=== PATIENT | female | born 1930 | race Caucasian/White ===

== ENCOUNTER 2017-01-03 03:16 | Observation (INO) | payer MEDICARE, OTHER ==
[~2017-01-03] VITALS: Ht 157.5 cm; Wt 99.5 kg
[2017-01-03] VITALS (11 sets, daily range): BP systolic 155–198; BP diastolic 74–90; PULSE 50–67; RESP 18–20; TEMP 98; Ht 157.5 cm; Wt 99.5 kg
[~2017-01-03 03:16] MED LIST: ASPI-664 PO; BENA40TA41 PO; CARV6.2579 PO; CLON0.2T5 PO; CYAN100080 PO; FURO40TA4 PO; GABA-526 PO; HUM100VI14 SC; HYDR12.58 PO; METF500T4 PO; NIT4 SL; POTA8TAB2 PO; SIMV40TA2 PO; TRAM-40 PO
[2017-01-03] MEDS ORDERED: ACETAMINOPHEN 500 MG TAB PO STA (03:37)
[2017-01-03] MEDS ORDERED: METOCLOPRAMIDE 10 MG INJ IV STA (03:37)
[2017-01-03] MEDS ORDERED: SOD CHLORIDE 0.9% 500 ML IV STA (03:37)
--- NOTE | 2017-01-03 03:54 | ERD ---
ER Documentation Chief Complaint Date/Time DATE: 01/03/17 TIME: 03:54 Chief Complaint pt states home BP machine states 300 at home and 239 HPI 86-year-old female with a history of hypertension, diabetes, and CHF presenting to the ER with complaints of hypertension, headache, chest pressure. She took multiple clonidine at home prior to arrival. She feels slightly better. She denies any vision disturbance, focal weakness or numbness. She states that she has had on and off chest pressure since yesterday with associated shortness of breath. Her symptoms are worse when she lays down, better with sitting up. No associated abdominal pain, nausea, vomiting, dizziness, diaphoresis. ROS All systems reviewed and are negative except as per history of present illness. Medications Home Meds Reported Medications Imipramine Hcl* (Imipramine Hcl*) 25 Mg Tablet, 25 MG PO HS, TAB 01/03/17 Mirtazapine* (Mirtazapine*) 15 Mg Tablet, 15 MG PO HS, TAB 01/03/17 Atorvastatin Calcium* (Atorvastatin Calcium*) 20 Mg Tablet, 20 MG PO DAILY, #30 TAB 01/03/17 Metformin* (Glucophage*) 850 Mg Tablet, 850 MG PO WITH BREAKFAST DINNE, #60 TAB 01/03/17 Carvedilol* (Carvedilol*) 12.5 Mg Tablet, 12.5 MG PO BID, #60 TAB 01/03/17 Hydrochlorothiazide* (Hydrochlorothiazide*) 12.5 Mg Tablet, 12.5 MG PO DAILY, TAB 07/06/15 Simvastatin* (Zocor*) 40 Mg Tablet, 40 MG PO DAILY, TAB 07/06/15 Gabapentin* (Gabapentin*) 600 Mg Tablet, 600 MG PO BID, TAB 07/06/15 Nitroglycerin* (Nitrostat*) 0.4 Mg Tab.subl, 0.4 MG SL Q5MIN Y for CHEST PAIN, BOTTLE 05/09/14 Aspirin* (Aspirin* EC) 81 Mg Tablet.dr, 81 MG PO DAILY, TAB 05/09/14 Discontinued Reported Medications Cyanocobalamin* (Vitamin B-12*) 1,000 Mcg Tablet.sa, 1000 MCG PO DAILY, TAB 07/06/15 Metformin* (Glucophage*) 500 Mg Tab, 500 MG PO BID, TAB 07/06/15 Carvedilol* (Carvedilol*) 6.25 Mg Tablet, 6.25 MG PO BID, TAB 07/06/15 Tramadol Hcl* (Ultram*) 50 Mg Tablet, 50 MG PO BID, TAB 07/06/15 Potassium Chloride* (Klor-Con*) 8 Meq Tablet.sa, 8 MEQ PO DAILY, TAB 07/06/15 Insulin Human Isophan/Regular (Novolin 70/30) 100 Units/Ml Susp, 30 UNIT SC PM, EA 05/27/14 Insulin Human Isophan/Regular (Novolin 70/30) 100 Units/Ml Susp, 35 UNIT SC AM, EA 05/27/14 Furosemide* (Furosemide*) 40 Mg Tablet, 40 MG PO DAILY, TAB 05/09/14 Benazepril Hcl* (Benazepril Hcl*) 40 Mg Tablet, 40 MG PO DAILY, TAB 05/09/14 Discontinued Scripts Clonidine Hcl* (Clonidine Hcl*) 0.2 Mg Tablet, 0.3 MG PO TID for 30 Days, TAB 3 Refills Prov:ALYSSA YADAV F 07/07/15 Allergies Allergies: Coded Allergies: NSAIDS (Non-Steroidal Anti-Inflamma (Unverified Allergy, Severe, 01/03/17) indomethacin (Unverified Allergy, Severe, 01/03/17) ANGIOEDEMA cortisone (Unverified Allergy, Unknown, 01/03/17) PMhx/Soc History of Surgery: Yes (CATARACT EYE SX; KNEE SX) Anesthesia Reaction: No Hx Neurological Disorder: No Hx Respiratory Disorders: No Hx Cardiac Disorders: Yes (HTN; HYPERLIPIDEMIA) Hx Psychiatric Problems: No Hx Miscellaneous Medical Probl: No Hx Alcohol Use: No Hx Substance Use: No Hx Tobacco Use: No FmHx Family History: No diabetes Physical Exam Vitals Vital Signs Date Time Temp Pulse Resp B/P Pulse Ox O2 Delivery O2 Flow Rate FiO2 01/03/17 06:42 97.5 55 18 150/70 91 Room Air 01/03/17 03:33 98.3 61 18 244/81 94 Room Air 01/03/17 03:24 98.3 60 18 190/75 100 Physical Exam Const: No significant distress, nontoxic Head: Atraumatic Eyes: Normal Conjunctiva, PERRLA, EOMI ENT: Normal External Ears, Nose and Mouth. Neck: Full range of motion. No JVD no meningismus. Resp: Clear to auscultation bilaterally Cardio: Regular rate and rhythm, no murmurs Abd: Soft, non tender, protuberant. Normal bowel sounds Skin: No petechiae or rashes Back: No midline or flank tenderness Ext: No cyanosis, nonpitting bilateral lower extremity edema. No calf tenderness bilateral Neur: Awake and alert and oriented 3, cranial nerves intact, strength and sensations intact in all 4 extremity Psych: Normal Mood and Affect Result Diagram: 01/03/17 0355 01/03/17 0355 Results 24 hrs Laboratory Tests Test 01/03/17 03:55 White Blood Count 4.910^3/ul Red Blood Count 4.8110^6/ul Hemoglobin 14.1g/dl Hematocrit 42.5% Mean Corpuscular Volume 88.4fl Mean Corpuscular Hemoglobin 29.3pg Mean Corpuscular Hemoglobin Concent 33.2g/dl Red Cell Distribution Width 12.8% Platelet Count 47605^3/UL Mean Platelet Volume 11.8fl Neutrophils % 55.3% Lymphocytes % 26.2% Monocytes % 14.2% Eosinophils % 3.7% Basophils % 0.4% Nucleated Red Blood Cells % 0.0/100WBC Neutrophils # 2.710^3/ul Lymphocytes # 1.310^3/ul Monocytes # 0.710^3/ul Eosinophils # 0.210^3/ul Basophils # 0.010^3/ul Nucleated Red Blood Cells # 0.010^3/ul Prothrombin Time 13.0Sec Prothrombin Time Ratio 1.0 INR International Normalized Ratio 0.98 Activated Partial Thromboplast Time 30.3Sec Sodium Level 141mmol/L Potassium Level 4.1mmol/L Chloride Level 102mmol/L Carbon Dioxide Level 29mmol/L Anion Gap 14 Blood Urea Nitrogen 24mg/dl Creatinine 1.02mg/dl Glucose Level 181mg/dl Calcium Level 9.0mg/dl Troponin I < 0.012ng/ml Current Medications Medications (Trade) Dose Ordered Sig/Jayson Route PRN Reason Start Time Stop Time Status Last Admin Dose Admin Sodium Chloride (NS) 500 ml @ 500 mls/hr Q1H STAT IV 01/03/17 03:37 01/03/17 04:36 DC 01/03/17 04:02 Metoclopramide HCl (Reglan) 10 mg ONCE STAT IV 01/03/17 03:37 01/03/17 03:38 DC 01/03/17 04:02 Acetaminophen (Tylenol Tab) 1,000 mg ONCE STAT PO 01/03/17 03:37 01/03/17 03:39 DC 01/03/17 04:02 Nitroglycerin (Nitroglycerin (Sl Tab) 0.4 Mg) 1 tab ONCE ONCE SL 01/03/17 05:30 01/03/17 05:31 DC 01/03/17 05:41 Nitroglycerin (Nitroglycerin (Sl Tab) 0.4 Mg) 1 tab ONCE ONCE SL 01/03/17 06:30 01/03/17 06:31 DC 01/03/17 06:20 Enalaprilat (Vasotec Iv) 0.625 mg ONCE ONCE IV 01/03/17 06:30 01/03/17 06:31 DC Procedures/MDM Labs: CBC and BMP without any significant abnormalities. Initial troponin negative. EKG: Rate/Rhythm: Sinus bradycardia at 59 with first-degree AV block QRS, ST, T-waves: Nonspecific T-wave abnormality, no changes consistent w/ acute ischemia Impression: No evidence of ischemia or arrhythmia Repeat EKG: Rate/Rhythm: Sinus bradycardia at 57 QRS, ST, T-waves: Nonspecific T-wave abnormality, no changes consistent w/ acute ischemia Impression: No evidence of ischemia or arrhythmia Chest x-ray IMPRESSION: Cardiomegaly and pulmonary vascular congestion. Aortic atherosclerosis. RPTAT: [facility] Physician Britt Date Time Electronically viewed and signed by Babita Camarillo Physician on 01/03/2017 06 :23 CT head does not show any acute abnormalities, chronic changes noted MDM: Patient is presenting with significant hypertension with headache and chest pressure. Reglan IV was given for headache with resolution of the headache. CT did not show any acute hemorrhage. Exam is not consistent with acute stroke. Nitroglycerin sublingual 0.4 mg 2 was given with improvement of her chest pain and her blood pressure. I have a low suspicion for hypertensive emergency at this time, however her chest pain is concerning. She does have evidence of some CHF on her chest x-ray but her respiratory status is stable. Patient's symptoms are concerning for cardiac cause will require inpatient workup and continuous monitoring. Aspirin was not given as the patient has an allergy to NSAIDs. Further w/u for ischemia, arrhythmia, PE or dissection will be deferred to the inpatient team. Accepting Care Team: Current data and ongoing care discussed. Time: Time of admission Primary Provider: Darin Consulting: None Outstanding Data: none Departure Diagnosis: Primary Impression: Chest pain Chest pain type: other chest pain Qualified Code: R07.89 - Other chest pain Additional Impressions: Hypertensive emergency CHF (congestive heart failure) Congestive heart failure type: unspecified congestive heart failure type Congestive heart failure chronicity: acute on chronic Qualified Code: I50.9 - Acute on chronic congestive heart failure, unspecified congestive heart failure type Headache Headache type: other headache syndrome Qualified Code: G44.89 - Other headache syndrome Condition: Serious MATIAS SELLERS MD Jan 03, 2017 03:54
[2017-01-03 04:18] LABS: ADD SCAN DIFF NO
[2017-01-03 04:23] LABS: BASOPHILS % 0.4 % (0.0-2.0); EOSINOPHILS # 0.2 10^3/ul (0.0-0.5); EOSINOPHILS % 3.7 % (0.0-7.0); HEMATOCRIT 42.5 % (37.0-47.0); HEMOGLOBIN 14.1 g/dl (12.0-16.0); LYMPHOCYTES # 1.3 10^3/ul (0.8-2.9); LYMPHOCYTES % 26.2 % (15.0-51.0); MEAN CORPUSCULAR HEMOGLOBIN 29.3 pg (29.0-33.0); MEAN CORPUSCULAR HGB CONC 33.2 g/dl (32.0-37.0); MEAN CORPUSCULAR VOLUME 88.4 fl (82.0-101.0); MEAN PLATELET VOLUME 11.8 fl (7.4-10.4); MONOCYTE # 0.7 10^3/ul (0.3-0.9); MONOCYTES % 14.2 % (0.0-11.0); NEUTROPHIL # 2.7 10^3/ul (1.6-7.5); NEUTROPHILS % 55.3 % (39.0-77.0); PLATELET COUNT 142 10^3/UL (140-415); RED BLOOD COUNT 4.81 10^6/ul (4.20-5.40); RED CELL DISTRIBUTION WIDTH 12.8 % (11.5-14.5); WHITE BLOOD COUNT 4.9 10^3/ul (4.8-10.8)
[2017-01-03 04:35] LABS: INR 0.98; PARTIAL THROMBOPLASTIN TIME 30.3 Sec (25.0-35.0)
[2017-01-03 04:43] LABS: CREATININE 1.02 mg/dl (0.44-1.00); POTASSIUM 4.1 mmol/L (3.5-5.1)
--- NOTE | 2017-01-03 04:58 | RADRPT ---
PROCEDURE: CT BRAIN WITHOUT CONTRAST CLINICAL INDICATION: 86-year-old female with headaches. TECHNIQUE: The study was performed utilizing [employer] VCT 64-slice CT scanner. Direct axial sections were obtained from the foramen magnum to the vertex without the use of intravenous contrast material. Sagittal and coronal reformations were obtained. Sagittal and coronal reformations were obtained. One or more the following dose reduction techniques were utilized: automated exposure cont rol, adjustment of the mA and/or kV according to patient's size or use of iterative reconstruction t echnique. The images were viewed on a PACS workstation. CTD/vol = 44.0 mGy; Total Exam DLP = 720.2 mGy-cm. COMPARISON: CT brain May 13, 2014. FINDINGS: There is [id number] degree of diffuse cortical and central atrophy with compensatory ventricul ar enlargement. There is no evidence for mass effect or midline shift. There are periventricular a reas of decreased density consistent with microangiopathic ischemic changes. There is no evidence f or acute intra or extra-axial blood. Calcifications are seen within the intracranial carotid arterie s bilaterally. The bony calvarium is intact. Small calcific bony excrescences are seen projecting fr om the right frontal and left temporal region without significant change. There is mild mucosal thi ckening within the ethmoid air cells and inferior maxillary sinuses. No air-fluid levels are noted. The mastoid air cells without significant soft tissue. IMPRESSION: 1. The intracranial contents are without significant interval change compared to the patient's prio r CT scan from May 13, 2014. 2. Tfas-hv-cmtowxct diffuse atrophy. 3. Microangiopathic ischemic changes. 4. Vascular calcifications. 5. Mild mucosal thickening ethmoid air cells and maxillary sinuses. .Charlie Smith MD, Date Time Electronically viewed and signed by .Charlie Smith MD, on 01/03/2017 04:58 .M/
[2017-01-03] MEDS ORDERED: NITROGLYCERIN (SL) 0.4 MG TAB SL ONE ×2 (05:30→06:30)
[2017-01-03] MEDS ORDERED: CARV12.579 PO (05:48)
[2017-01-03] MEDS ORDERED: METF-480 PO (05:48)
[2017-01-03] MEDS ORDERED: MIRT15TA5 PO (05:51)
[2017-01-03] MEDS ORDERED: IMIP25TA3 PO (05:51)
[2017-01-03] MEDS ORDERED: ATOR20TA38 PO (05:51)
--- NOTE | 2017-01-03 06:23 | RADRPT ---
PROCEDURE: XR Chest. CLINICAL INDICATION: Chest pain. Upper GI bleed. TECHNIQUE: Portable single view of the chest COMPARISON: 07/06/2015 FINDINGS: Again seen is cardiomegaly and ectatic and calcified aorta. Pulmonary vascular congestion is seen. No definite focal infiltrate or pleural effusion. No overt congestive heart failure. Mild degener ative change of the spine. IMPRESSION: Cardiomegaly and pulmonary vascular congestion. Aortic atherosclerosis. RPTAT: [facility] Physician Britt Date Time Electronically viewed and signed by Babita Camarillo Physician on 01/03/2017 06:23 LE/
[2017-01-03] MEDS: ENALAPRILAT 1.25 MG INJ IV ONE ×2 (06:40→06:46)
[2017-01-03] MEDS ORDERED: ONDANSETRON 4 MG INJ IV PRN (07:00)
[2017-01-03] MEDS ORDERED: ACETAMINOPHEN 325 MG TAB PO PRN ×2 (07:00→09:30)
[2017-01-03] MEDS ORDERED: morphine 2 MG INJ IV PRN (09:30)
[2017-01-03] MEDS ORDERED: HYDROCODONE/APAP (5/325) TAB PO PRN (09:30)
[2017-01-03] MEDS ORDERED: NACL 0.9% 3 ML SYG IV SCH (09:30)
[2017-01-03] MEDS ORDERED: GLUCOSE GEL 15 GRAM TUBE PO PRN ×2 (10:00)
[2017-01-03] MEDS ORDERED: GLUCOSE GEL 15 GRAM TUBE BUCCAL PRN (10:00)
[2017-01-03] MEDS ORDERED: BENAZEPRIL 5 MG TAB PO SCH (10:00)
[2017-01-03] MEDS ORDERED: DEXTROSE 50% 50 ML SYRINGE IV PRN ×2 (10:00)
[2017-01-03] MEDS ORDERED: GLUCAGON 1 MG INJ IM PRN (10:00)
[2017-01-03] MEDS ORDERED: FUROSEMIDE 20 MG INJ IV ONE (11:30)
--- NOTE | 2017-01-03 11:47 | HP ---
DATE OF ADMISSION: 01/03/2017 TIME OF EVALUATION: 9:00 a.m. REASON FOR ADMISSION: Chest pain. CONSULTATIONS: Dr. Lokesh [place], Cardiology. HOSPITAL COURSE: This is an 86-year-old [place] female with a past medical history of essential hypertension, type 2 diabetes mellitus, dyslipidemia, and morbid obesity, who came to the emergency room with a chief complaint of chest pain, as well as elevated blood pressure readings at home. The patient verbalized that for the past 2 days that she was having chest pain with lying down. The patient verbalized the pain as a squeezing pain and that it was intense with lying down, but better with sitting up. The patient also verbalized associated diaphoresis. The patient verbalized that her blood pressure has been running high for the past 2 days. The patient denied any nausea, vomiting, abdominal pain, diarrhea, hematochezia or dysuria. The patient also verbalized dyspnea associated with her chest pain symptoms. The patient does not follow up with outpatient cardiology. The patient had a stress test done in July of 2015 that was negative. At that time the patient was advised to follow up with outpatient cardiology; however, the patient never followed up with outpatient cardiology. In the emergency room, the patient had a blood pressure of 190/75, with a repeat reading of 244/81. The patient's troponins were negative. The patient' s 12-lead EKG showed a first-degree AV block. The patient was treated with IV enalapril and sublingual nitroglycerin in the emergency room. The patient's chest x-ray that was done in the emergency room showed cardiomegaly and pulmonary vascular congestion. PAST MEDICAL HISTORY: 1. Essential hypertension. 2. Type 2 diabetes mellitus. 3. Dyslipidemia. 4. Obesity. PAST SURGICAL HISTORY: Right knee replacement. HOME MEDICATIONS: 1. Imipramine 25 mg p.o. at bedtime. 2. Mirtazapine 50 mg p.o. at bedtime. 3. Atorvastatin 20 mg p.o. daily. 4. Metformin 850 mg p.o. with breakfast and dinner. 5. Coreg 12.5 mg p.o. b.i.d. 6. Hydrochlorothiazide 12.5 mg p.o. daily. 7. Gabapentin 600 mg p.o. b.i.d. 8. Aspirin 81 mg p.o. daily. ALLERGIES: NSAIDs. REVIEW OF SYSTEMS: A 12-point review of systems were made and review of systems are negative other than what is mentioned in the history of present illness. PHYSICAL EXAMINATION: VITAL SIGNS: Temperature 98.0, pulse rate 50, respiratory rate 17, blood pressure 151/78, oxygen saturation 98% on room air. GENERAL: This is an obese female patient, sitting in a chair, in no apparent distress. HEENT: Head normocephalic and atraumatic. Eyes, anicteric sclerae. Conjunctivae clear. ENT: Nasal septum is midline. Oral mucosa is moist. NECK: Supple. No JVD noticed. RESPIRATORY: Bilaterally diminished breath sounds. Bilateral fine rales heard. No use of accessory muscles of respiration. CARDIAC: S1, S2 heard. Sinus bradycardia. Regular rate and rhythm. ABDOMEN: Soft, nontender, nondistended. Bowel sounds positive in all 4 quadrants. GENITOURINARY: Deferred. EXTREMITIES: No cyanosis, no clubbing, no edema. Peripheral pulses palpable. A right knee surgical scar. NEUROLOGIC: The patient is awake, alert and oriented. Cranial nerves are grossly intact. LABORATORY AND DIAGNOSTIC DATA: WBC 4.9, hemoglobin 14.1, hematocrit 42.5, platelet count 142. Sodium 141, potassium 4.1, chloride 102, carbon dioxide 20 , anion gap 14, BUN 24, creatinine 1.02, glucose 181, calcium 9.0. Troponin I less than 0.01. ProBNP 292. PT 13.0, INR 0.988, PTT 30.3. Chest x-ray: Cardiomegaly and pulmonary vascular congestion. Aortic atherosclerosis. Brain CT scan: Mild to moderate diffuse atrophy. Microangiopathic ischemic changes. Vascular calcifications. Mild mucosal thickening of ethmoid air cells and maxillary sinuses. 12-lead EKG: Positive AV block. IMPRESSION: This is an 86-year-old female with multiple comorbidities who came into the emergency room with a chief complaint of chest pain, as well as elevated blood pressure, who will be admitted here for further treatment and evaluation. ASSESSMENT AND PLAN: 1. Chest pain. To rule out acute coronary syndrome. The patient will be continued on aspirin. Serial troponins will be obtained. A 2D echocardiogram will be obtained. A cardiology consult will be obtained. 2. First-degree AV block. The patient will be monitored on telemetry floor. AV louise blocking agents will be avoided. Cardiology consult will be obtained. 3. Possible underlying congestive heart failure exacerbation. Systolic versus diastolic dysfunction. A 2D echocardiogram will be obtained. The patient's BNP is not elevated. However, the patient's chest x-ray is showing pulmonary vascular congestion. The patient will be started on low-dose Lasix. A cardiology consult will be obtained. 4. Hypertensive urgency. The patient will be started on appropriate antihypertensives. The patient's blood pressure will be lowered gradually. 5. Type 2 diabetes mellitus. The patient will be started on sliding scale insulin, along with Lantus insulin and premeal insulin. Hemoglobin A1c will be obtained to evaluate the blood glucose control over the past few weeks. 6. Dyslipidemia. The patient will be resumed on statins. A fasting lipid panel will be obtained. The patient will be started on a low cholesterol diet. Plan. The patient will be admitted to inpatient telemetry floor. The patient will be started on a carbohydrate controlled, low cholesterol diet. The patient will be started on DVT prophylaxis and gastrointestinal prophylaxis. The patient will remain a FULL CODE. Activities will be as tolerated. The rest of the patient's management will be based on the clinical course, the results of diagnostic studies, and inputs from consultants. Based on the patient's clinical presentation, she most probably requires at least a 1-midnight's stay for further management and evaluation of her clinical presentation. The case and management of this patient was fully discussed with Dr. Jaffe. MACY JAFFE MD, AM/RADHA Conf#: [id number] DID#: [id number] RIN
[2017-01-03] MEDS: GABAPENTIN 300 MG CAP PO SCH ×2 (11:54→20:22)
[2017-01-03] MEDS: ASPIRIN (EC) 81 MG TAB PO SCH (11:54)
[2017-01-03] MEDS: HYDROCHLOROTHIAZIDE 12.5 MG CAP PO SCH (11:54)
[2017-01-03] MEDS: ENOXAPARIN 30 MG/0.3 ML SYG SC SCH (12:08)
[2017-01-03] MEDS: INSULIN ASPART [NOVOLOG] 3 ML PEN SC SCH ×5 (12:09→20:10)
[2017-01-03] MEDS: AMLODIPINE 10 MG TAB PO SCH (12:20)
[2017-01-03 12:42] LABS: CREATINE KINASE 48 IU/L (23-200)
[2017-01-03 12:54] LABS: CK-MB 0.94 ng/ml (0.0-2.4); TROPONIN-I < 0.012 ng/ml (0.00-0.12)
--- NOTE | 2017-01-03 12:57 | CONS ---
Date/Time of Note Date/Time of Note DATE: 01/03/17 TIME: 12:49 Assessment/Plan Assessment/Plan Chief Complaint/Hosp Course Chest pain: Likely in setting of severely elevated BP to 250s. She certainly has CAD risk factors and has uncontrolled DM. She will need another stress MPI inpt or outpt. For now trend trops. Acute on ?chronic ?diastolic heart failure: mild by exam. EF normal 2014. Gentle diuresis Hypertensive emergency: BP as high as 250 on admission. High at home apparently. Will need control here. 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 Of note she was hospitalized 07/2015 for similar complaints and had a normal Lexiscan MPI. She notes that she has had an "enlarged heart" in the past but denies CAD or [place]. She notes that for the past 3 days she has been having difficulty laying down as she gets SOB and has a cough. She also has been having chest pain mostly while laying down. When she is active she feels ok. She also has noted leg edema. Currently no chest pain. She takes clonidine 0.1mg up to 5 times per day and notes her BP is usually very high, up to 250s. per HPI Past Medical History Medical History: congestive heart failure Social History Smoking Status: Never smoker Exam/Review of Systems Vital Signs Vitals Vital Signs Date Time Temp Pulse Resp B/P Pulse Ox O2 Delivery O2 Flow Rate FiO2 01/03/17 12:00 55 01/03/17 11:41 97.9 20 198/79 97 01/03/17 08:10 Nasal Cannula 2.0 Exam Constitutional: alert, oriented Psych: no complaints Head: atraumatic, normocephalic Neck: jvd (difficult to assess but appears to be mildly elevated ) Respiratory: crackles/rales (mild), No clear to auscultation Cardiovascular: edema (1+), regular rate and rhythm Gastrointestinal: non-tender, soft Extremities: No clubbing, No cyanosis Neurological: nl mental status, nl speech Skin: No rash or lesions Results Result Diagram: 01/03/17 0355 01/03/17 0355 Results 24 hrs Laboratory Tests Test 01/03/17 03:55 01/03/17 11:50 01/03/17 12:05 White Blood Count 4.9 # Red Blood Count 4.81 Hemoglobin 14.1 Hematocrit 42.5 Mean Corpuscular Volume 88.4 Mean Corpuscular Hemoglobin 29.3 Mean Corpuscular Hemoglobin Concent 33.2 Red Cell Distribution Width 12.8 Platelet Count 142 Mean Platelet Volume 11.8 H Neutrophils % 55.3 Lymphocytes % 26.2 Monocytes % 14.2 H Eosinophils % 3.7 Basophils % 0.4 Nucleated Red Blood Cells % 0.0 Neutrophils # 2.7 Lymphocytes # 1.3 Monocytes # 0.7 Eosinophils # 0.2 Basophils # 0.0 Nucleated Red Blood Cells # 0.0 Prothrombin Time 13.0 Prothrombin Time Ratio 1.0 INR International Normalized Ratio 0.98 Activated Partial Thromboplast Time 30.3 Sodium Level 141 Potassium Level 4.1 Chloride Level 102 Carbon Dioxide Level 29 Anion Gap 14 Blood Urea Nitrogen 24 H Creatinine 1.02 H Glucose Level 181 Hemoglobin A1c 10.8 H Calcium Level 9.0 Troponin I < 0.012 Pending B-Type Natriuretic Peptide 292 Thyroid Stimulating Hormone (TSH) 1.580 Free Thyroxine 0.89 Creatine Kinase 48 Creatine Kinase Index Pending Creatinine Kinase MB (Mass) Pending Bedside Glucose 184 Medications Medications Current Medications Acetaminophen (Tylenol Tab) 650 mg Q6H PRN PO PAIN LEVEL 1-3 OR FEVER; Start at 09:30 Acetaminophen/ Hydrocodone Bitart ([place] (5/325)) 1 tab Q6H PRN PO PAIN LEVEL 4 -6; Start 01/03/17 at 09:30 Morphine Sulfate (morphine) 2 mg Q4H PRN IV PAIN LEVEL 7-10 Last administered on 01/03/17t 11:57; Admin Dose 2 MG; Start 01/03/17 at 09:30 Enoxaparin Sodium (Lovenox) 30 mg DAILY SC Last administered on 01/03/17 12:08 ; Admin Dose 30 MG; Start 01/03/17 at 10:00 Hydralazine HCl (Apresoline) 10 mg Q6H PRN IV SBP>180; Start 01/03/17 at 10:00 Aspirin (Halfprin) 81 mg DAILY PO Last administered on 01/03/17 11:54; Admin Dose 81 MG; Start 01/03/17 at 10:00 Atorvastatin Calcium (Lipitor) 20 mg QHS PO ; Start 01/03/17 at 21:00 Gabapentin (Neurontin) 600 mg BID PO Last administered on 01/03/17 11:54; Admin Dose 600 MG; Start 01/03/17 at 10:00 Hydrochlorothiazide (Hydrochlorothiazide) 12.5 mg DAILY PO Last administered on 01/03/17 11:54; Admin Dose 12.5 MG; Start 01/03/17 at 10:00 Imipramine HCl (Tofranil) 25 mg HS PO ; Start 01/03/17 at 21:00 Mirtazapine (Remeron) 15 mg HS PO ; Start 01/03/17 at 21:00 Insulin Detemir (Levemir) 11 unit DAILY@20 SC ; Start 01/03/17 at 20:00 Diagnostic Test (Pha) (Accu-Chek) 1 ea 02 XX ; Start 01/04/17 at 02:00 Miscellaneous Information 1 ea NOTE XX ; Start 01/03/17 at 10:00 Glucose (Glutose) 15 gm Q15M PRN PO DECREASED GLUCOSE; Start 01/03/17 at 10:00 Glucose (Glutose) 22.5 gm Q15M PRN PO DECREASED GLUCOSE; Start 01/03/17 at 10:00 Dextrose (D50w Syringe) 25 ml Q15M PRN IV DECREASED GLUCOSE; Start 01/03/17 at 10:00 Dextrose (D50w Syringe) 50 ml Q15M PRN IV DECREASED GLUCOSE; Start 01/03/17 at 10:00 Glucagon (Glucagen) 1 mg Q15M PRN IM DECREASED GLUCOSE; Start 01/03/17 at 10:00 Glucose (Glutose) 15 gm Q15M PRN BUCCAL DECREASED GLUCOSE; Start 01/03/17 at 10: 00 Amlodipine Besylate (Norvasc) 10 mg DAILY PO Last administered on 6/2/17at 12: 20; Admin Dose 10 MG; Start 01/03/17 at 12:00 JESSICA NIETO Jan 03, 2017 12:57
[2017-01-03 14:00] LABS: ADD UMIC YES; URINE BILIRUBIN (Dip) NEGATIVE (NEGATIVE); URINE BLOOD (Dip) TRACE (NEGATIVE); URINE COLOR LT. YELLOW (YELLOW); URINE GLUCOSE (Dip) NEGATIVE (NEGATIVE); URINE KETONES (Dip) NEGATIVE (NEGATIVE); URINE LEUKOCYTE ESTERASE (Dip) NEGATIVE (NEGATIVE); URINE NITRITE (Dip) NEGATIVE (NEGATIVE); URINE TOTAL PROTEIN (Dip) 2+ (NEGATIVE); URINE UROBILINOGEN (Dip) 0.2 E.U./dL (0.1-1.0)
[2017-01-03 14:23] LABS: BACTERIA,URINE FEW; URINE RBCS 0-2 /HPF (0)
[2017-01-03] MEDS: hydrALAzine 20 MG INJ IV PRN (15:34)
[2017-01-03] MEDS: FUROSEMIDE 20 MG INJ IV SCH (17:13)
[2017-01-03 18:11] LABS: CREATINE KINASE 54 IU/L (23-200)
[2017-01-03 18:20] LABS: CK-MB 1.08 ng/ml (0.0-2.4)
[2017-01-03 18:44] LABS: TROPONIN-I < 0.012 ng/ml (0.00-0.12)
[2017-01-03] MEDS ORDERED: INSULIN DETEMIR [LEVEMIR] 3ML CART SC SCH (20:00)
[2017-01-03] MEDS: MIRTAZAPINE 15 MG TAB PO SCH (20:21)
[2017-01-03] MEDS: ATORVASTATIN 20 MG TAB PO SCH (20:21)
[2017-01-03] MEDS: IMIPRAMINE 25 MG TAB PO SCH (20:22)
--- NOTE | 2017-01-03 23:44 | RADRPT ---
Echocardiogram Report Patient Name: FRANCK RAMOS Gender: Female Date: 1930 Study Date: 03-Jan-2017 Welding Specialist: Sally Payton HANNAH Location: 508 Ref. Physician: MACY SOOD Quality: Adequate Procedures: Transthoracic echocardiogram with complete 2D, M-Mode, and doppler examination. Indications: Chest Pain. 2D/M Mode Doppler Measurement Value Normal Ranges Measurement Value Normal Ranges LVIDd 2D 4.9 3.5 - 5.6 cm JAH Vmax 2.6 cm2 LVIDs 2D 2.7 2.1 - 4.1 cm JAH VTI 2.6 cm2 LVPWd 2D 1.4 0.6 - 1.1 cm AV Peak Wolf 1.4 m/sec IVSd 2D 1.4 0.6 - 1.1 cm AV Peak PG 8.1 mmHg AoR Diam 2D 2.8 2.0 - 3.7 cm LVOT Peak Wolf 1.0 m/sec EDV 2D 112.7 cm3 LVOT Peak PG 3.8 mmHg ESV 2D 18.8 cm3 MV E Peak Wolf 0.7 m/sec LA Dimen 2D 4.9 2.3 - 4.0 cm MV A Peak Wolf 1.0 m/sec LVOT Diam 2.2 cm MV E/A 0.7 MV Decel Time 235 msec MV Decel Holmes 3 MV E/A 0.7 TR Peak Wolf 1.5 m/sec TR Peak PG 9.5 mmHg RVSP 13.0 mmHg Findings Left Ventricle: Normal left ventricular systolic function. Normal left ventricular cavity size. Moderate concentric left ventricular hypertrophy. Ejection fraction is visually estimated at 65 %. Tissue Doppler/Mitral Doppler indices are consistent with impaired relaxation (Stage I diastolic dysfunction). Right Ventricle: Normal right ventricular size. Normal right ventricular systolic function. Left Atrium: There is mild enlargement of left atrium. Right Atrium: The right atrium is normal in size. Mitral Valve: Normal appearance of the mitral valve. Mild mitral annular calcification. No mitral valve regurgitation is seen. Aortic Valve: Normal appearance of the aortic valve. No significant aortic stenosis or insufficiency. Tricuspid Valve: Normal appearance of the tricuspid valve. Unable to obtain RVSP due to minimal presence of tricuspid regurgitation. Estimated peak PA systolic pressure mmHg. There is trace tricuspid regurgitation. Pulmonic Valve: Normal pulmonic valve appearance. Pericardium: Normal pericardium with no significant pericardial effusion. Aorta: Normal aortic root. IVC: Dilated IVC with respiratory collapse consistent with elevated right atrial pressure. Conclusions Normal left ventricular systolic function. Normal left ventricular cavity size. Moderate concentric left ventricular hypertrophy. Ejection fraction is visually estimated at 65 %. Tissue Doppler/Mitral Doppler indices are consistent with impaired relaxation (Stage I diastolic dysfunction). No significant valvular stenosis or regurgitation seen. Unable to obtain RVSP due to minimal presence of tricuspid regurgitation. RA pressure is 3-8 mmHg. Electronically Signed By: Lokesh Lake 03-Jan-2017 23:44:02 -0700 Patient Name: FRANCK RAMOS Study Date: 03-Jan-2017 [id number]
[2017-01-04] VITALS (13 sets, daily range): BP systolic 139–224; BP diastolic 64–93; PULSE 68–100; RESP 19
[2017-01-04] MEDS: ACCU-CHEK XX SCH (01:49)
[2017-01-04] MEDS ORDERED: ACCU-CHEK XX SCH (02:00)
[2017-01-04] MEDS: FUROSEMIDE 20 MG INJ IV SCH (05:28)
[2017-01-04] MEDS ORDERED: ONDANSETRON 4 MG INJ IV PRN (06:00)
[2017-01-04 06:55] LABS: ADD SCAN DIFF NO
[2017-01-04 07:01] LABS: BASOPHILS % 0.5 % (0.0-2.0); EOSINOPHILS # 0.1 10^3/ul (0.0-0.5); EOSINOPHILS % 1.5 % (0.0-7.0); HEMATOCRIT 48.8 % (37.0-47.0); HEMOGLOBIN 16.2 g/dl (12.0-16.0); LYMPHOCYTES # 1.2 10^3/ul (0.8-2.9); LYMPHOCYTES % 15.6 % (15.0-51.0); MEAN CORPUSCULAR HEMOGLOBIN 29.3 pg (29.0-33.0); MEAN CORPUSCULAR HGB CONC 33.2 g/dl (32.0-37.0); MEAN CORPUSCULAR VOLUME 88.2 fl (82.0-101.0); MEAN PLATELET VOLUME 12.3 fl (7.4-10.4); MONOCYTE # 0.6 10^3/ul (0.3-0.9); MONOCYTES % 8.3 % (0.0-11.0); NEUTROPHIL # 5.5 10^3/ul (1.6-7.5); NEUTROPHILS % 73.6 % (39.0-77.0); PLATELET COUNT 177 10^3/UL (140-415); RED BLOOD COUNT 5.53 10^6/ul (4.20-5.40); WHITE BLOOD COUNT 7.4 10^3/ul (4.8-10.8)
[2017-01-04 07:15] LABS: MAGNESIUM 1.8 mg/dl (1.7-2.5); PHOSPHORUS 4.9 mg/dl (2.5-4.9)
[2017-01-04 07:21] LABS: CHOL/HDL RATIO 3.3 RATIO
[2017-01-04 07:24] LABS: TROPONIN-I 0.014 ng/ml (0.00-0.12)
[2017-01-04 07:31] LABS: ALBUMIN 4.6 g/dl (3.3-4.9); ALBUMIN/GLOBULIN RATIO 1.7; BILIRUBIN,INDIRECT 0.4 mg/dl (0-1.1); BILIRUBIN,TOTAL 0.4 mg/dl (0.2-1.3); CALCIUM 9.1 mg/dl (8.4-10.2); CREATININE 0.84 mg/dl (0.44-1.00); POTASSIUM 4.1 mmol/L (3.5-5.1); TOTAL PROTEIN 7.3 g/dl (6.1-8.1)
[2017-01-04] MEDS: INSULIN ASPART [NOVOLOG] 3 ML PEN SC SCH ×8 (08:41→21:00)
[2017-01-04] MEDS: GABAPENTIN 300 MG CAP PO SCH ×2 (08:42→20:15)
[2017-01-04] MEDS: HYDROCHLOROTHIAZIDE 12.5 MG CAP PO SCH (08:42)
[2017-01-04] MEDS: ASPIRIN (EC) 81 MG TAB PO SCH (08:42)
[2017-01-04] MEDS: AMLODIPINE 10 MG TAB PO SCH (08:43)
[2017-01-04] MEDS: ENOXAPARIN 30 MG/0.3 ML SYG SC SCH (08:47)
[2017-01-04] MEDS: LOSARTAN 50 MG TAB PO SCH (10:22)
--- NOTE | 2017-01-04 10:34 | CONS ---
Date/Time of Note Date/Time of Note DATE: 01/04/17 TIME: 10:32 Assessment/Plan Assessment/Plan Chief Complaint/Hosp Course Chest pain: Likely in setting of severely elevated BP to 250s. She certainly has CAD risk factors and has uncontrolled DM. She will need another stress MPI outpt Acute on chronic diastolic heart failure: mild by exam. EF normal. Now euvolemic Hypertensive emergency: BP as high as 250 on admission. High at home apparently. 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 SOB resolved. No chest pain. Exam/Review of Systems Vital Signs Vitals Vital Signs Date Time Temp Pulse Resp B/P Pulse Ox O2 Delivery O2 Flow Rate FiO2 01/04/17 10:23 80 224/89 01/04/17 08:19 98.0 19 98 01/03/17 08:10 Nasal Cannula 2.0 Intake and Output 01/03/17 01/03/17 01/04/17 15:00 23:00 07:00 Intake Total 1800 ml 300 ml Output Total 1500 ml 1000 ml Balance 300 ml -700 ml Exam Constitutional: alert, oriented Psych: no complaints Head: atraumatic, normocephalic Neck: No jvd Respiratory: clear to auscultation, No crackles/rales Cardiovascular: regular rate and rhythm, No edema Gastrointestinal: non-tender, soft Neurological: nl mental status, nl speech Results Result Diagram: 01/04/17 0615 01/04/17 0615 Results 24 hrs Laboratory Tests Test 01/03/17 11:50 01/03/17 12:00 01/03/17 12:05 01/03/17 17:16 Creatine Kinase 48 Creatine Kinase Index 2.0 Creatinine Kinase MB (Mass) 0.94 Troponin I < 0.012 Urine Color LT. YELLOW Urine Clarity CLEAR Urine pH 6.0 Urine Specific [place] 1.015 Urine Ketones NEGATIVE Urine Nitrite NEGATIVE Urine Bilirubin NEGATIVE Urine Urobilinogen 0.2 E.U./dL Urine Leukocyte Esterase NEGATIVE Urine Microscopic RBC 0-2 Urine Microscopic WBC 2-5 Urine Epithelial Cells FEW Urine Amorphous Urates FEW Urine Bacteria FEW Urine Hemoglobin TRACE Urine Glucose NEGATIVE Urine Total Protein 2+ H Bedside Glucose 184 198 Test 01/03/17 17:40 01/03/17 20:02 01/04/17 01:42 01/04/17 06:15 Creatine Kinase 54 Creatine Kinase Index 2.0 Creatinine Kinase MB (Mass) 1.08 Troponin I < 0.012 0.014 Bedside Glucose 309 H 239 H White Blood Count 7.4 # Red Blood Count 5.53 H Hemoglobin 16.2 H Hematocrit 48.8 H Mean Corpuscular Volume 88.2 Mean Corpuscular Hemoglobin 29.3 Mean Corpuscular Hemoglobin Concent 33.2 Red Cell Distribution Width 13.0 Platelet Count 177 # Mean Platelet Volume 12.3 H Neutrophils % 73.6 Lymphocytes % 15.6 Monocytes % 8.3 Eosinophils % 1.5 Basophils % 0.5 Nucleated Red Blood Cells % 0.0 Neutrophils # 5.5 Lymphocytes # 1.2 Monocytes # 0.6 Eosinophils # 0.1 Basophils # 0.0 Nucleated Red Blood Cells # 0.0 Sodium Level 138 Potassium Level 4.1 Chloride Level 100 Carbon Dioxide Level 25 Anion Gap 17 H Blood Urea Nitrogen 23 H Creatinine 0.84 Glucose Level 247 H Calcium Level 9.1 Phosphorus Level 4.9 Magnesium Level 1.8 Total Bilirubin 0.4 Direct Bilirubin 0.00 Indirect Bilirubin 0.4 Aspartate Amino Transf (AST/SGOT) 31 Alanine Aminotransferase (ALT/SGPT) 49 Alkaline Phosphatase 170 H Total Protein 7.3 Albumin 4.6 Globulin 2.70 Albumin/Globulin Ratio 1.70 Triglycerides Level 197 H Cholesterol Level 174 LDL Cholesterol, Calculated 83 HDL Cholesterol 52 Cholesterol/HDL Ratio 3.3 Test 01/04/17 07:54 01/04/17 07:56 Bedside Glucose 228 H 239 H Medications Medications Current Medications Acetaminophen (Tylenol Tab) 650 mg Q6H PRN PO PAIN LEVEL 1-3 OR FEVER Last administered on 01/03/17t 17:12; Admin Dose 650 MG; Start 01/03/17 at 09:30 Acetaminophen/ Hydrocodone Bitart ([place] (5/325)) 1 tab Q6H PRN PO PAIN LEVEL 4 -6 Last administered on 01/03/17 21:55; Admin Dose 1 TAB; Start 01/03/17 at 09:30 Morphine Sulfate (morphine) 2 mg Q4H PRN IV PAIN LEVEL 7-10 Last administered on 01/03/17 11:57; Admin Dose 2 MG; Start 01/03/17 at 09:30 Enoxaparin Sodium (Lovenox) 30 mg DAILY SC Last administered on 01/04/17 08:47 ; Admin Dose 30 MG; Start 01/03/17 at 10:00 Hydralazine HCl (Apresoline) 10 mg Q6H PRN IV SBP>180 Last administered on 15:34; Admin Dose 10 MG; Start 01/03/17 at 10:00 Aspirin (Halfprin) 81 mg DAILY PO Last administered on 01/04/17 08:42; Admin Dose 81 MG; Start 01/03/17 at 10:00 Atorvastatin Calcium (Lipitor) 20 mg QHS PO Last administered on 01/03/17 20:21 ; Admin Dose 20 MG; Start 01/03/17 at 21:00 Gabapentin (Neurontin) 600 mg BID PO Last administered on 01/04/17 08:42; Admin Dose 600 MG; Start 01/03/17 at 10:00 Hydrochlorothiazide (Hydrochlorothiazide) 12.5 mg DAILY PO Last administered on 01/04/17 08:42; Admin Dose 12.5 MG; Start 01/03/17 at 10:00 Imipramine HCl (Tofranil) 25 mg HS PO Last administered on 01/03/17 20:22; Admin Dose 25 MG; Start 01/03/17 at 21:00 Mirtazapine (Remeron) 15 mg HS PO Last administered on 01/03/17 20:21; Admin Dose 15 MG; Start 01/03/17 at 21:00 Insulin Detemir (Levemir) 11 unit DAILY@20 SC Last administered on 01/03/17 20: 11; Admin Dose 11 UNIT; Start 01/03/17 at 20:00 Diagnostic Test (Pha) (Accu-Chek) 1 ea 02 XX ; Start 01/04/17 at 02:00 Miscellaneous Information 1 ea NOTE XX ; Start 01/03/17 at 10:00 Glucose (Glutose) 15 gm Q15M PRN PO DECREASED GLUCOSE; Start 01/03/17 at 10:00 Glucose (Glutose) 22.5 gm Q15M PRN PO DECREASED GLUCOSE; Start 01/03/17 at 10:00 Dextrose (D50w Syringe) 25 ml Q15M PRN IV DECREASED GLUCOSE; Start 01/03/17 at 10:00 Dextrose (D50w Syringe) 50 ml Q15M PRN IV DECREASED GLUCOSE; Start 01/03/17 at 10:00 Glucagon (Glucagen) 1 mg Q15M PRN IM DECREASED GLUCOSE; Start 01/03/17 at 10:00 Glucose (Glutose) 15 gm Q15M PRN BUCCAL DECREASED GLUCOSE; Start 01/03/17 at 10: 00 Amlodipine Besylate (Norvasc) 10 mg DAILY PO Last administered on 01/04/17 08: 43; Admin Dose 10 MG; Start 01/03/17 at 12:00 Clonidine (Catapres) 0.1 mg TID PO Last administered on 01/04/17 08:42; Admin Dose 0.1 MG; Start 01/03/17 at 13:00 Ondansetron HCl (Zofran Inj) 4 mg Q4H PRN IV NAUSEA AND/OR VOMITING; Start 01/04 at 06:00 Losartan Potassium (Cozaar) 50 mg DAILY PO Last administered on 01/04/17 10:22 ; Admin Dose 50 MG; Start 01/04/17 at 10:00 JESSICA NIETO Jan 04, 2017 10:34
[2017-01-04] MEDS: hydrALAzine 20 MG INJ IV PRN (10:43)
--- NOTE | 2017-01-04 16:08 | PN ---
Date/Time of Note Date/Time of Note DATE: 01/04/17 TIME: 16:04 Assessment/Plan VTE Prophylaxis VTE Prophylaxis Intervention: LMWH Lines/Catheters IV [facility] [place] [facility] Urinary Cath still in place: No Assessment/Plan Chief Complaint/Hosp Course 1. Chest pain. To rule out acute coronary syndrome. The patient will be continued on aspirin. Serial troponins negative. 2D echocardiogram showing preserved left ventricular ejection fraction. Cardiology recommending outpatient stress test. 2. First-degree AV block. The patient will be monitored on telemetry floor. AV louise blocking agents will be avoided. Cardiology following. 3. Congestive heart failure exacerbation. Acute on chronic diastolic dysfunction. Continue low-dose Lasix. 4. Hypertensive urgency. The patient will be continued on appropriate antihypertensives. The patient's blood pressure will be lowered gradually. 5. Type 2 diabetes mellitus. Hemoglobin A1c 10.8. Continue sliding scale insulin, along with basal insulin and premeal insulin. Will also add biguanides and DPP 4 inhibitors. 6. Dyslipidemia. The patient will be continued on statins. 7. Obesity. BMI of 40.1 kg/m. Weight reduction advised. 8. DVT prophylaxis. Subcutaneous Lovenox. 9. Gastrointestinal prophylaxis. Histamine 2 receptor blockers. 10. Plan. Continue telemetry monitoring. Adjust antihypertensives to obtain optimal blood pressure control. Adjust insulin to obtain optimal blood sugar control. Case discussed with . Problems: Subjective 24 Hr Interval Summary Free Text/Dictation Denies any chest pain. The patient's blood pressure has been fluctuating and running high. Blood sugars also running high. Exam/Review of Systems Vital Signs Vitals Vital Signs Date Time Temp Pulse Resp B/P Pulse Ox O2 Delivery O2 Flow Rate FiO2 01/04/17 15:07 98.0 69 19 139/64 92 01/03/17 08:10 Nasal Cannula 2.0 Intake and Output 01/03/17 01/03/17 01/04/17 15:00 23:00 07:00 Intake Total 1800 ml 300 ml Output Total 1500 ml 1000 ml Balance 300 ml -700 ml Exam GENERAL: This is an obese female patient, sitting in a chair, in no apparent distress. HEENT: Head normocephalic and atraumatic. Eyes, anicteric sclerae. Conjunctivae clear. ENT: Nasal septum is midline. Oral mucosa is moist. NECK: Supple. No JVD noticed. RESPIRATORY: Bilaterally diminished breath sounds. Bilateral fine rales heard. No use of accessory muscles of respiration. CARDIAC: S1, S2 heard. Sinus bradycardia. Regular rate and rhythm. ABDOMEN: Soft, nontender, nondistended. Bowel sounds positive in all 4 quadrants. GENITOURINARY: Deferred. EXTREMITIES: No cyanosis, no clubbing, no edema. Peripheral pulses palpable. Right knee surgical scar. NEUROLOGIC: The patient is awake, alert and oriented. Cranial nerves are grossly intact. Results Result Diagram: 01/04/17 0615 01/04/17 0615 Results 24 hrs Laboratory Tests Test 01/03/17 17:16 01/03/17 17:40 01/03/17 20:02 01/04/17 01:42 Bedside Glucose 198 309 H 239 H Creatine Kinase 54 Creatine Kinase Index 2.0 Creatinine Kinase MB (Mass) 1.08 Troponin I < 0.012 Test 01/04/17 06:15 01/04/17 07:54 01/04/17 07:56 01/04/17 12:07 White Blood Count 7.4 # Red Blood Count 5.53 H Hemoglobin 16.2 H Hematocrit 48.8 H Mean Corpuscular Volume 88.2 Mean Corpuscular Hemoglobin 29.3 Mean Corpuscular Hemoglobin Concent 33.2 Red Cell Distribution Width 13.0 Platelet Count 177 # Mean Platelet Volume 12.3 H Neutrophils % 73.6 Lymphocytes % 15.6 Monocytes % 8.3 Eosinophils % 1.5 Basophils % 0.5 Nucleated Red Blood Cells % 0.0 Neutrophils # 5.5 Lymphocytes # 1.2 Monocytes # 0.6 Eosinophils # 0.1 Basophils # 0.0 Nucleated Red Blood Cells # 0.0 Sodium Level 138 Potassium Level 4.1 Chloride Level 100 Carbon Dioxide Level 25 Anion Gap 17 H Blood Urea Nitrogen 23 H Creatinine 0.84 Glucose Level 247 H Calcium Level 9.1 Phosphorus Level 4.9 Magnesium Level 1.8 Total Bilirubin 0.4 Direct Bilirubin 0.00 Indirect Bilirubin 0.4 Aspartate Amino Transf (AST/SGOT) 31 Alanine Aminotransferase (ALT/SGPT) 49 Alkaline Phosphatase 170 H Troponin I 0.014 Total Protein 7.3 Albumin 4.6 Globulin 2.70 Albumin/Globulin Ratio 1.70 Triglycerides Level 197 H Cholesterol Level 174 LDL Cholesterol, Calculated 83 HDL Cholesterol 52 Cholesterol/HDL Ratio 3.3 Bedside Glucose 228 H 239 H 291 H Medications Medications Current Medications Acetaminophen (Tylenol Tab) 650 mg Q6H PRN PO PAIN LEVEL 1-3 OR FEVER Last administered on 01/03/17 17:12; Admin Dose 650 MG; Start 01/03/17 at 09:30 Acetaminophen/ Hydrocodone Bitart ([place] (5/325)) 1 tab Q6H PRN PO PAIN LEVEL 4 -6 Last administered on 01/03/17 21:55; Admin Dose 1 TAB; Start 01/03/17 at 09:30 Morphine Sulfate (morphine) 2 mg Q4H PRN IV PAIN LEVEL 7-10 Last administered on 01/03/17 11:57; Admin Dose 2 MG; Start 01/03/17 at 09:30 Enoxaparin Sodium (Lovenox) 30 mg DAILY SC Last administered on 01/04/17 08:47 ; Admin Dose 30 MG; Start 01/03/17 at 10:00 Hydralazine HCl (Apresoline) 10 mg Q6H PRN IV SBP>180 Last administered on 10:43; Admin Dose 10 MG; Start 01/03/17 at 10:00 Aspirin (Halfprin) 81 mg DAILY PO Last administered on 01/04/17 08:42; Admin Dose 81 MG; Start 01/03/17 at 10:00 Atorvastatin Calcium (Lipitor) 20 mg QHS PO Last administered on 01/03/17 20:21 ; Admin Dose 20 MG; Start 01/03/17 at 21:00 Gabapentin (Neurontin) 600 mg BID PO Last administered on 01/04/17 08:42; Admin Dose 600 MG; Start 01/03/17 at 10:00 Hydrochlorothiazide (Hydrochlorothiazide) 12.5 mg DAILY PO Last administered on 01/04/17 08:42; Admin Dose 12.5 MG; Start 01/03/17 at 10:00 Imipramine HCl (Tofranil) 25 mg HS PO Last administered on 01/03/17 20:22; Admin Dose 25 MG; Start 01/03/17 at 21:00 Mirtazapine (Remeron) 15 mg HS PO Last administered on 01/03/17 20:21; Admin Dose 15 MG; Start 01/03/17 at 21:00 Diagnostic Test (Pha) (Accu-Chek) 1 ea 02 XX ; Start 01/04/17 at 02:00 Miscellaneous Information 1 ea NOTE XX ; Start 01/03/17 at 10:00 Glucose (Glutose) 15 gm Q15M PRN PO DECREASED GLUCOSE; Start 01/03/17 at 10:00 Glucose (Glutose) 22.5 gm Q15M PRN PO DECREASED GLUCOSE; Start 01/03/17 at 10:00 Dextrose (D50w Syringe) 25 ml Q15M PRN IV DECREASED GLUCOSE; Start 01/03/17 at 10:00 Dextrose (D50w Syringe) 50 ml Q15M PRN IV DECREASED GLUCOSE; Start 01/03/17 at 10:00 Glucagon (Glucagen) 1 mg Q15M PRN IM DECREASED GLUCOSE; Start 01/03/17 at 10:00 Glucose (Glutose) 15 gm Q15M PRN BUCCAL DECREASED GLUCOSE; Start 01/03/17 at 10: 00 Amlodipine Besylate (Norvasc) 10 mg DAILY PO Last administered on 01/04/17 08: 43; Admin Dose 10 MG; Start 01/03/17 at 12:00 Clonidine (Catapres) 0.1 mg TID PO Last administered on 01/04/17 12:35; Admin Dose 0.1 MG; Start 01/03/17 at 13:00 Ondansetron HCl (Zofran Inj) 4 mg Q4H PRN IV NAUSEA AND/OR VOMITING; Start 01/04 at 06:00 Losartan Potassium (Cozaar) 50 mg DAILY PO Last administered on 01/04/17 10:22 ; Admin Dose 50 MG; Start 01/04/17 at 10:00 Furosemide (Lasix) 20 mg DAILY PO ; Start 01/05/17 at 09:00 Linagliptin (Tradjenta) 5 mg DAILY PO ; Start 01/05/17 at 09:00 Insulin Detemir (Levemir) 13 unit DAILY@20 SC ; Start 01/04/17 at 20:00 MACY SOOD NP Jan 04, 2017 16:08
[2017-01-04] MEDS: metFORMIN 500 MG TAB PO SCH (17:44)
[2017-01-04] MEDS ORDERED: INSULIN DETEMIR [LEVEMIR] 3ML CART SC SCH (20:00)
[2017-01-04] MEDS: IMIPRAMINE 25 MG TAB PO SCH (20:14)
[2017-01-04] MEDS: ATORVASTATIN 20 MG TAB PO SCH (20:15)
[2017-01-04] MEDS: MIRTAZAPINE 15 MG TAB PO SCH (20:15)
[2017-01-05] VITALS (8 sets, daily range): BP systolic 127–192; BP diastolic 56–87; PULSE 72–79; RESP 18
[2017-01-05] MEDS: ACCU-CHEK XX SCH (02:00)
[2017-01-05 07:10] LABS: ADD SCAN DIFF NO
[2017-01-05 07:20] LABS: BASOPHILS % 0.5 % (0.0-2.0); EOSINOPHILS # 0.1 10^3/ul (0.0-0.5); EOSINOPHILS % 2.2 % (0.0-7.0); HEMATOCRIT 44.9 % (37.0-47.0); HEMOGLOBIN 15.2 g/dl (12.0-16.0); LYMPHOCYTES # 1.6 10^3/ul (0.8-2.9); LYMPHOCYTES % 28.5 % (15.0-51.0); MEAN CORPUSCULAR HEMOGLOBIN 29.6 pg (29.0-33.0); MEAN CORPUSCULAR HGB CONC 33.9 g/dl (32.0-37.0); MEAN CORPUSCULAR VOLUME 87.4 fl (82.0-101.0); MEAN PLATELET VOLUME 12.5 fl (7.4-10.4); MONOCYTE # 0.6 10^3/ul (0.3-0.9); MONOCYTES % 11.3 % (0.0-11.0); NEUTROPHIL # 3.1 10^3/ul (1.6-7.5); NEUTROPHILS % 57.3 % (39.0-77.0); PLATELET COUNT 159 10^3/UL (140-415); RED BLOOD COUNT 5.14 10^6/ul (4.20-5.40); RED CELL DISTRIBUTION WIDTH 13.1 % (11.5-14.5); WHITE BLOOD COUNT 5.5 10^3/ul (4.8-10.8)
[2017-01-05 07:32] LABS: MAGNESIUM 1.7 mg/dl (1.7-2.5); PHOSPHORUS 4.8 mg/dl (2.5-4.9)
[2017-01-05 07:34] LABS: CALCIUM 8.3 mg/dl (8.4-10.2); CREATININE 1.16 mg/dl (0.44-1.00); POTASSIUM 3.5 mmol/L (3.5-5.1)
[2017-01-05] MEDS: ASPIRIN (EC) 81 MG TAB PO SCH (08:34)
[2017-01-05] MEDS: metFORMIN 500 MG TAB PO SCH (08:35)
[2017-01-05] MEDS: HYDROCHLOROTHIAZIDE 12.5 MG CAP PO SCH (08:35)
[2017-01-05] MEDS: GABAPENTIN 300 MG CAP PO SCH (08:35)
[2017-01-05] MEDS: AMLODIPINE 10 MG TAB PO SCH (08:36)
[2017-01-05] MEDS: LOSARTAN 50 MG TAB PO SCH (08:36)
[2017-01-05] MEDS: INSULIN ASPART [NOVOLOG] 3 ML PEN SC SCH ×4 (08:44→11:49)
[2017-01-05] MEDS: ENOXAPARIN 30 MG/0.3 ML SYG SC SCH (08:45)
[2017-01-05] MEDS ORDERED: FUROSEMIDE 20 MG TAB PO SCH (09:00)
[2017-01-05] MEDS ORDERED: LINAGLIPTIN 5 MG TABLET PO SCH (09:00)
--- NOTE | 2017-01-05 09:13 | PDOCDIS ---
Discharge Instructions DIAGNOSIS Discharge Diagnosis: Chest pain. ACS ruled out. CONDITION Patient Condition: Stable HOME CARE INSTRUCTIONS: Special Diet: CARDIAC CONTROLLED CARB ACTIVITY: Activity Restrictions: Slowly Increase Activity FOLLOW UP/APPOINTMENTS Appointments 1. Geronimo Bravo MD Specialty: Internal Medicine Office Address: [address] [place] [address] Office 2. Lokesh Lake MD Specialty: Interventional Cardiology Office Address: [address] [place] [address] Office OTHER ORDERS: Other Orders: 1. Take medications as per prescription. 2. Follow a carbohydrate controlled, low-cholesterol diet. 3. Resume activities as tolerated. 4. Follow-up with your primary care physician 1 week. If you do not have a primary care physician, please call Dr. Geronimo Bravo's office. 5. Follow-up with the cardiology [Dr. Lake] in 2 weeks. Please call for appointment. 6. Please call 911 or go to the nearest emergency room if you have any chest pain or significant shortness of breath. MACY SOOD NP Jan 05, 2017 09:13
[2017-01-05] MEDS ORDERED: METF500T PO (09:18)
[2017-01-05] MEDS ORDERED: CLON0.1T14 PO (09:18)
[2017-01-05] MEDS ORDERED: AMLO-147 PO (09:18)
[2017-01-05] MEDS ORDERED: LINA5TAB PO (09:18)
[2017-01-05] MEDS ORDERED: LOSA100T7 PO (09:19)
[2017-01-05] MEDS ORDERED: FURO-110 PO (09:19)
[2017-01-05] MEDS ORDERED: LOSARTAN 50 MG TAB PO ONE (09:30)
--- NOTE | 2017-01-05 10:55 | CONS ---
Date/Time of Note Date/Time of Note DATE: 01/05/17 TIME: 10:54 Assessment/Plan Assessment/Plan Chief Complaint/Hosp Course Chest pain: Likely in setting of severely elevated BP to 250s. She certainly has CAD risk factors and has uncontrolled DM. She will need another stress MPI outpt Acute on chronic diastolic heart failure: mild by exam. EF normal. Now euvolemic Hypertensive emergency: BP as high as 250 on admission. High at home apparently. 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 BP controlled throughout the day, elevated in am before meds. Will be discharged today Exam/Review of Systems Vital Signs Vitals Vital Signs Date Time Temp Pulse Resp B/P Pulse Ox O2 Delivery O2 Flow Rate FiO2 01/05/17 08:06 73 01/05/17 07:56 98.0 18 192/87 97 01/03/17 08:10 Nasal Cannula 2.0 Intake and Output 01/04/17 01/04/17 01/05/17 15:00 23:00 07:00 Intake Total 700 ml 300 ml Output Total 1000 ml Balance 700 ml -700 ml Exam Constitutional: alert, oriented Psych: nl mood/affect, no complaints Head: atraumatic, normocephalic Neck: No jvd Respiratory: clear to auscultation, No crackles/rales Cardiovascular: regular rate and rhythm, No edema Gastrointestinal: non-tender, soft Neurological: nl mental status, nl speech Results Result Diagram: 01/05/17 0615 01/05/17 0615 Results 24 hrs Laboratory Tests Test 01/04/17 12:07 01/04/17 17:17 01/04/17 20:13 01/05/17 01:19 Bedside Glucose 291 H 248 H 248 H 175 Test 01/05/17 06:15 01/05/17 07:55 White Blood Count 5.5 # Red Blood Count 5.14 Hemoglobin 15.2 Hematocrit 44.9 Mean Corpuscular Volume 87.4 Mean Corpuscular Hemoglobin 29.6 Mean Corpuscular Hemoglobin Concent 33.9 Red Cell Distribution Width 13.1 Platelet Count 159 Mean Platelet Volume 12.5 H Neutrophils % 57.3 Lymphocytes % 28.5 Monocytes % 11.3 H Eosinophils % 2.2 Basophils % 0.5 Nucleated Red Blood Cells % 0.0 Neutrophils # 3.1 Lymphocytes # 1.6 Monocytes # 0.6 Eosinophils # 0.1 Basophils # 0.0 Nucleated Red Blood Cells # 0.0 Sodium Level 136 Potassium Level 3.5 Chloride Level 100 Carbon Dioxide Level 26 Anion Gap 14 Blood Urea Nitrogen 31 H Creatinine 1.16 H Glucose Level 185 Calcium Level 8.3 L Phosphorus Level 4.8 Magnesium Level 1.7 Bedside Glucose 185 Medications Medications Current Medications Acetaminophen (Tylenol Tab) 650 mg Q6H PRN PO PAIN LEVEL 1-3 OR FEVER Last administered on 01/03/17 17:12; Admin Dose 650 MG; Start 01/03/17 at 09:30 Acetaminophen/ Hydrocodone Bitart ([place] (5/325)) 1 tab Q6H PRN PO PAIN LEVEL 4 -6 Last administered on 01/03/17 21:55; Admin Dose 1 TAB; Start 01/03/17 at 09:30 Morphine Sulfate (morphine) 2 mg Q4H PRN IV PAIN LEVEL 7-10 Last administered on 01/03/17 11:57; Admin Dose 2 MG; Start 01/03/17 at 09:30 Enoxaparin Sodium (Lovenox) 30 mg DAILY SC Last administered on 01/05/17 08:45 ; Admin Dose 30 MG; Start 01/03/17 at 10:00 Hydralazine HCl (Apresoline) 10 mg Q6H PRN IV SBP>180 Last administered on 10:43; Admin Dose 10 MG; Start 01/03/17 at 10:00 Aspirin (Halfprin) 81 mg DAILY PO Last administered on 01/05/17 08:34; Admin Dose 81 MG; Start 01/03/17 at 10:00 Atorvastatin Calcium (Lipitor) 20 mg QHS PO Last administered on 01/04/17 20:15 ; Admin Dose 20 MG; Start 01/03/17 at 21:00 Gabapentin (Neurontin) 600 mg BID PO Last administered on 01/05/17 08:35; Admin Dose 600 MG; Start 01/03/17 at 10:00 Hydrochlorothiazide (Hydrochlorothiazide) 12.5 mg DAILY PO Last administered on 01/05/17 08:35; Admin Dose 12.5 MG; Start 01/03/17 at 10:00 Imipramine HCl (Tofranil) 25 mg HS PO Last administered on 01/04/17 20:14; Admin Dose 25 MG; Start 01/03/17 at 21:00 Mirtazapine (Remeron) 15 mg HS PO Last administered on 01/04/17 20:15; Admin Dose 15 MG; Start 01/03/17 at 21:00 Diagnostic Test (Pha) (Accu-Chek) 1 ea 02 XX ; Start 01/04/17 at 02:00 Miscellaneous Information 1 ea NOTE XX ; Start 01/03/17 at 10:00 Glucose (Glutose) 15 gm Q15M PRN PO DECREASED GLUCOSE; Start 01/03/17 at 10:00 Glucose (Glutose) 22.5 gm Q15M PRN PO DECREASED GLUCOSE; Start 01/03/17 at 10:00 Dextrose (D50w Syringe) 25 ml Q15M PRN IV DECREASED GLUCOSE; Start 01/03/17 at 10:00 Dextrose (D50w Syringe) 50 ml Q15M PRN IV DECREASED GLUCOSE; Start 01/03/17 at 10:00 Glucagon (Glucagen) 1 mg Q15M PRN IM DECREASED GLUCOSE; Start 01/03/17 at 10:00 Glucose (Glutose) 15 gm Q15M PRN BUCCAL DECREASED GLUCOSE; Start 01/03/17 at 10: 00 Amlodipine Besylate (Norvasc) 10 mg DAILY PO Last administered on 01/05/17 08: 36; Admin Dose 10 MG; Start 01/03/17 at 12:00 Clonidine (Catapres) 0.1 mg TID PO Last administered on 01/05/17 08:36; Admin Dose 0.1 MG; Start 01/03/17 at 13:00 Ondansetron HCl (Zofran Inj) 4 mg Q4H PRN IV NAUSEA AND/OR VOMITING; Start 01/04 at 06:00 Losartan Potassium (Cozaar) 50 mg DAILY PO Last administered on 01/05/17 08:36 ; Admin Dose 50 MG; Start 01/04/17 at 10:00 Furosemide (Lasix) 20 mg DAILY PO Last administered on 01/05/17 08:35; Admin Dose 20 MG; Start 01/05/17 at 09:00 Linagliptin (Tradjenta) 5 mg DAILY PO Last administered on 01/05/17 08:35; Admin Dose 5 MG; Start 01/05/17 at 09:00 Insulin Detemir (Levemir) 13 unit DAILY@20 SC Last administered on 01/04/17 20: 32; Admin Dose 13 UNIT; Start 01/04/17 at 20:00 JESSICA NIETO Jan 05, 2017 10:55
--- NOTE | 2017-01-05 19:05 | DS ---
DATE OF ADMISSION: 01/03/2017 DATE OF DISCHARGE: 01/05/2017 FINAL DIAGNOSES: 1. Chest pain. Acute coronary syndrome ruled out. 2. First-degree atrioventricular block. 3. Congestive heart failure exacerbation, [id number] diastolic dysfunction. 4. Hypertensive urgency. 5. Type 2 diabetes mellitus. 6. Dyslipidemia. 7. Obesity. CONSULTATIONS: Dr. Lokesh Lake, Cardiology. 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 The patient verbalized that for 2 days prior to the patient' s admission to the hospital, she was having chest pain while lying down. The patient verbalized the chest as squeezing pain that was intense with lying down , but better with sitting up. The patient also verbalized some associated diaphoresis. The patient verbalized that her blood pressure has been running high during these 2 days. The patient denied any nausea, vomiting, abdominal pain, diarrhea, hematochezia, dysuria. In the emergency room, the patient had a blood pressure of 190/75 with a repeat reading of 244/81. The patient's troponins were negative. The patient's 12-lead EKG showed first-degree AV block. Provided the patient's history of present illness, her comorbidities and the diagnostic findings, a clinical decision was made to admit the patient to inpatient setting to have her further evaluated. The patient was admitted to inpatient telemetry floor. A cardiology consult was obtained, a 2D echocardiogram was ordered. Serial troponins were ordered. The patient's troponins remained negative. The patient's 2D echocardiogram showed ejection fraction of 65% with stage I diastolic dysfunction. The patient was ruled out for any acute coronary syndrome. However, the patient's police matron recommended outpatient stress test to completely rule out ACS, provided the patient's multiple comorbidities. The patient was noticed to have first-degree AV block with sinus bradycardia. The patient's beta blockers were discontinued. The patient was also noticed to have congestive heart failure exacerbation, [id number] diastolic dysfunction. The patient was maintained on low-dose Lasix. The patient also had hypertensive urgency. The patient's blood pressure was lowered down gradually. The patient's blood pressure medications had to be adjusted multiple times to obtain optimal blood pressure control. The patient has underlying diabetes mellitus. The patient's blood sugars were uncontrolled. The patient's hemoglobin A1c was 10.8. The patient's insulin dosing had to be adjusted multiple times to obtain optimal blood sugar control. The patient was also started on DPP4 inhibitors. The patient's biguanide dosing was increased to obtain optimal blood sugar control. The patient was also noted to have dyslipidemia. The patient was continued on statins. The patient has a BMI of 40.1 kg/meter square. Weight reduction was advised. The patient had a stable hospital course. The patient was cleared by cardiology to be discharged home. DISCHARGE DISPOSITION AND PLAN: The patient will be discharged home today. The patient was instructed to take medications as per prescription. The patient was instructed to follow a carbohydrate controlled, low cholesterol diet. The patient was instructed to resume activities as tolerated. The patient was instructed to follow up with her primary care physician in 1 week and if she does not have a primary care physician, to please call Dr. Geronimo Bravo's office. The patient was instructed to follow up with Dr. Lake ( cardiology) in 2 weeks. The patient was instructed to call 911 or go to the nearest emergency room if she has any chest pain or significant shortness of breath. The patient verbalized understanding of her discharge instructions. CONDITION AT DISCHARGE: Stable. DISCHARGE MEDICATIONS: 1. Amlodipine 10 mg p.o. daily. 2. Clonidine 0.1 mg p.o. t.i.d. 3. Lasix 20 mg p.o. daily. 4. Tradjenta 5 mg p.o. daily. 5. Losartan 100 mg p.o. daily. 6. Metformin 1000 mg p.o. b.i.d. 7. Aspirin 81 mg p.o. daily. 8. Atorvastatin 20 mg p.o. daily. 9. Gabapentin 600 mg p.o. b.i.d. 10. Imipramine 25 mg p.o. at bedtime. 11. Mirtazapine 15 mg p.o. at bedtime. 12. Nitroglycerin 0.4 mg sublingual q.5 minutes p.r.n. chest pain. PERTINENT LABORATORY AND DIAGNOSTIC DATA: 1. Two-D echocardiogram: Moderate concentric left ventricular hypertrophy. Ejection fraction is visually estimated at 65%. Stage I diastolic dysfunction. Unable to obtain RVSP due to minimal presence of tricuspid regurgitation. No significant valvular stenosis or regurgitation is seen. 2. Latest CBC: WBC 5.5, hemoglobin 15.2, hematocrit 44.9, platelet count 159. 3. Latest BMP: Sodium 136, potassium 3.5, chloride 100, carbon dioxide 26, anion gap 14, BUN 13, creatinine 1.16, glucose 185, calcium 8.3, phosphorus 4.8 , magnesium 1.8. 4. Hemoglobin A1c 10.8. 5. Fasting lipid panel: Triglycerides 197, total cholesterol 174, LDL 83, HDL 52. 6. Brain CT scan upon admission: No acute intracranial findings. 7. Chest x-ray: Cardiomegaly and pulmonary vascular congestion. Aortic atherosclerosis. At this time, I would like to thank Dr. Lake for seeing the patient and providing clinical recommendations. The case and management of this patient was fully discussed with Dr. Norris. Approximately 35 minutes was spent on coordinating the discharge on this patient. MACY NORRIS MD AM/NTS Conf#: [id number] DID#: [id number] CC: ELMIRA MIRANDA MD;*EndCC* MTDD
== END 2017-01-05 14:35 | disposition home or self-care (01) ==
LOC: E/R 03:16 → TEL 06:58
PROVIDERS: ADMIT Family Medicine; ATTEND Family Medicine
DX: R07.9 Chest pain, unspecified (principal); I44.0 Atrioventricular block, first degree; I11.0 Hypertensive heart disease with heart failure; I50.33 Acute on chronic diastolic (congestive) heart failure; I16.0 Hypertensive urgency; E11.9 Type 2 diabetes mellitus without complications; E78.5 Hyperlipidemia, unspecified; E66.9 Obesity, unspecified; Z68.41 Body mass index [BMI] 40.0-44.9, adult; Z79.4 Long term (current) use of insulin; Z79.82 Long term (current) use of aspirin; Z88.8 Allergy status to other drugs, medicaments and biological substances; Z86.11 Personal history of tuberculosis
CPT/HCPCS: 36415; 70450; 71010; 80048; 80053; 80061; 81001; 82550; 82553; 82962; 83036; 83735; 83880; 84100; 84439; 84443; 84484; 85025; 85610; 85730; 93005; 93306; 96372; 96374; 96375; 99285; G0378; J0360; J1650; J1815; J1940; J2270; J2765; J7040; J2405

== ENCOUNTER 2017-10-02 08:19 | Inpatient (IN) | END 2017-10-08 15:55 | DRG 872 ==